=== PATIENT | female | born 1995 | race Caucasian/White ===

== ENCOUNTER 2019-07-15 22:00 | Emergency (ER) | payer OTHER, BC ==
[~2019-07-15] VITALS: Ht 162.6 cm; Wt 77.1 kg
[2019-07-15] MEDS ORDERED: CYCL10 PO (23:30)
== END 2019-07-15 23:39 | disposition home or self-care (01) ==
LOC: ER 22:00
DX: S80.12XA Contusion of left lower leg, initial encounter (principal); S80.11XA Contusion of right lower leg, initial encounter; M25.511 Pain in right shoulder; R10.9 Unspecified abdominal pain; M62.838 Other muscle spasm; F17.210 Nicotine dependence, cigarettes, uncomplicated; Z88.1 Allergy status to other antibiotic agents; V49.40XA Driver injured in collision with unspecified motor vehicles in traffic accident, initial encounter
CPT/HCPCS: 99283